=== PATIENT | male | born 1975 | race Two or more races ===

== ENCOUNTER 2019-05-08 09:00 | Inpatient (IN) | payer OTHER ==
[~2019-05-08] VITALS: Ht 177.8 cm; Wt 122.5 kg
[2019-05-08] MEDS ORDERED: LAMISIL PO (09:34)
[2019-05-14] MEDS ORDERED: TERBINAFINE HC250 MG PO (09:50)
== END 2019-05-15 20:20 | disposition home or self-care (01) | DRG 621 ==
LOC: EDUNIT# 09:00 → EDSEX 05-14 05:36 → SURH 05-14 05:36 → SURG 05-14 05:36 → O/R 05-14 05:36 → SURH 05-14 07:00 → SURG 05-14 21:53
PROVIDERS: ADMIT Plastic Surgery
PROC: 0WBF0ZZ Excision of Abdominal Wall, Open Approach (ICD-10-PCS; 2019-05-14)
PROC: 0HPT0NZ Removal of Tissue Expander from Right Breast, Open Approach (ICD-10-PCS; 2019-05-14)
PROC: 0HPU0NZ Removal of Tissue Expander from Left Breast, Open Approach (ICD-10-PCS; 2019-05-14)
PROC: 0J073ZZ Alteration of Back Subcutaneous Tissue and Fascia, Percutaneous Approach (ICD-10-PCS; principal; 2019-05-14 07:00)
DX: E65 Localized adiposity (principal); M62.08 Separation of muscle (nontraumatic), other site; E88.1 Lipodystrophy, not elsewhere classified

== ENCOUNTER 2019-07-09 15:23 | Inpatient (IN) | payer OTHER ==
[~2019-07-09] VITALS: Ht 30.5 cm; Wt 5.0 kg
[~2019-07-09 15:23] MED LIST: LAMISIL PO; TERBINAFINE HC250 MG PO
[2019-07-22] MEDS ORDERED: CHLORHEXIDINE118 M1 TOP (11:16)
[2019-07-22] MEDS ORDERED: MUPIROCIN22 GM TOP (11:16)
[2019-07-22] MEDS ORDERED: FLAGYL500MG PO (11:16)
[2019-07-22] MEDS ORDERED: INTESTINEX680 M1 PO (11:16)
== END 2019-07-22 13:25 | disposition home or self-care (01) | DRG 923 ==
LOC: SURH 15:23 → SURG 15:23 → SURH 07-10 15:15
PROVIDERS: Plastic Surgery; ADMIT Internal Medicine
PROC: BW21Y0Z Computerized Tomography (CT Scan) of Abdomen and Pelvis using Other Contrast, Unenhanced and Enhanced (ICD-10-PCS; 2019-07-09)
PROC: 8E0ZXY6 Isolation (ICD-10-PCS; 2019-07-10)
PROC: 0W9F30Z Drainage of Abdominal Wall with Drainage Device, Percutaneous Approach (ICD-10-PCS; principal; 2019-07-10 11:00)
PROC: BW21ZZZ Computerized Tomography (CT Scan) of Abdomen and Pelvis (ICD-10-PCS; 2019-07-17)
DX: T79.2XXA Traumatic secondary and recurrent hemorrhage and seroma, initial encounter (principal); L02.211 Cutaneous abscess of abdominal wall; N62 Hypertrophy of breast; M62.08 Separation of muscle (nontraumatic), other site; A49.02 Methicillin resistant Staphylococcus aureus infection, unspecified site

== ENCOUNTER 2023-08-26 09:02 | Emergency (ER) | payer OTHER ==
[~2023-08-26] VITALS: Ht 177.8 cm; Wt 163.3 kg
[~2023-08-26 09:02] MED LIST changes: +CHLORHEXIDINE118 M1 TOP; +FLAGYL500MG PO; +INTESTINEX680 M1 PO; +MUPIROCIN22 GM TOP
[2023-08-26] MEDS ORDERED: METOPROLOL SUC100 MG PO (09:33)
[2023-08-26] MEDS ORDERED: IRBESARTAN300 MG PO (09:33)
[2023-08-26] MEDS ORDERED: HYDROCHLOROTH12.5 MG PO (09:33)
[2023-08-26] MEDS ORDERED: DOXAZOSIN MESYLA4 MG PO (09:33)
[2023-08-26 13:19] LABS: HEMATOCRIT 41.3 % (39.0-48.0); HEMOGLOBIN 14.3 g/dL (13-16.00); MEAN CELL VOLUME 89.6 fL (80.0-100.00); MEAN CORPUSCULAR HGB CONC 34.6 g/dl (32.0-36.0); PLATELET COUNT 233 K/uL (150-450); RED BLOOD COUNT 4.61 M/uL (4.00-6.00); RED CELL DISTRIBUTION WIDTH 13.9 % (11.5-14.5)
[2023-08-26 13:47] LABS: ALBUMIN 3.7 gm/dL (3.4-5.0); BILIRUBIN TOTAL 0.52 mg/dL (0.3-1.2); CALCIUM 9.3 mg/dL (8.5-10.1); CREATININE SERUM 0.89 mg/dL (0.70-1.30); GFR 92.02; GLOBULINA 3.4 G/DL (2.4-3.5); POTASSIUM 4.15 mEq/L (3.5-5.1); TOTAL PROTEIN 7.1 gm/dL (6.4-8.2)
== END 2023-08-26 15:27 | disposition home or self-care (01) ==
LOC: ER 09:03
PROVIDERS: General Practice
DX: R55 Syncope and collapse (principal); I10 Essential (primary) hypertension; R42 Dizziness and giddiness; Z20.822 Contact with and (suspected) exposure to COVID-19